=== PATIENT | male | born 1970 | race Caucasian/White ===

== ENCOUNTER → 2022-04-09 | Outpatient (CLI) | payer BC ==
--- NOTE | 2022-04-09 17:43 | XR ---
EXAMINATION TYPE: XR lumbar spine with bend/flex DATE OF EXAM: 04/09/2022 4:56 PM INDICATION: Patient age:Male; 51 years old; Reason for study: M54.50 Low Back Pain, M25.561, M25.562, M25.511; . COMPARISON: 10/15/2014 TECHNIQUE: Frontal, lateral and coned in L5-S1 lateral views of the spine. Additional flexion and ext ension views. FINDINGS: No evidence of any acute osseous pathology. No evidence of loss of vertebral body height i s seen. There is normal alignment of the lumbar vertebral bodies. Mild scattered disc space narrowing . Multilevel marginal osteophyte formation throughout the visualized spine. There is facet joint arth ropathy throughout the spine. Scattered at least mild neural foraminal stenosis. Extending and flexion did not demonstrate abnormal alignment. IMPRESSION: 1. No acute fracture. 2. Mild multilevel disc degeneration worse at the upper lumbar spine.
--- NOTE | 2022-04-09 21:04 | XR ---
EXAMINATION TYPE: XR shoulder complete RT DATE OF EXAM: 04/09/2022 4:56 PM INDICATION: Patient age:Male; 51 years old; Reason for study: M54.50 Low Back Pain, M25.561, M25.562, M25.511; COMPARISON: None TECHNIQUE: The right shoulder was examined in AP, internally rotated and scapular Y projections. . FINDINGS: No evidence of acute osseous pathology, joint dislocation, or soft tissue swelling. The remaining por tions of the visualized chest are unremarkable. Mild hypertrophy of the distal clavicle. IMPRESSION: 1. No acute osseous pathology. 2. Minimal degeneration of the AC joint.
--- NOTE | 2022-04-09 21:05 | XR ---
EXAMINATION TYPE: XR knee complete bilateral DATE OF EXAM: 04/09/2022 4:56 PM INDICATION: Patient age:Male; 51 years old; Reason for study: M54.50 Low Back Pain, M25.561, M25.562, M25.511; [facility]. COMPARISON: None. TECHNIQUE: The bilateral knees knee(s) was examined in Frontal, lateral and oblique projections. FINDINGS: No evidence of any acute osseous pathology, joint space narrowing, soft tissue swelling, or joint effusion is noted. Mild degeneration with osteophyte formation involving the tibial plateau and patella. A fabella is p resent on the left. IMPRESSION: 1. No acute osseous pathology. 2. Mild bilateral tricompartmental osteoarthritic changes.
== END | disposition home or self-care (01) ==
LOC: RADXRMAIN 16:05
DX: M51.36 Other intervertebral disc degeneration, lumbar region (principal); M19.011 Primary osteoarthritis, right shoulder; M17.0 Bilateral primary osteoarthritis of knee
CPT/HCPCS: 72114